=== PATIENT | female | born 1960 | race American Indian/Alaskan Native ===

== ENCOUNTER 2017-08-06 10:59 | Emergency (ER) | payer BC, OTHER ==
[2017-08-06 11:25] VITALS: BP 158/85
[2017-08-06] MEDS ORDERED: Sodium Chloride 0.9% 10 ML Syringe FLUSH PRN ×2 (11:28→12:54)
[2017-08-06] MEDS ORDERED: HYDROmorphone 0.5 MG/0.5 ML Syringe IVPUSH ONE (11:31)
--- NOTE | 2017-08-06 11:43 | EDM.PDOC ---
ED HPI GENERAL MEDICAL PROBLEM - General Chief Complaint: Cardiovascular Problem Stated Complaint: HIGH BP/NUMBNESS IN R ARM Time Seen by Provider: 08/06/17 11:08 Source of Information: Reports: Patient, Family History Limitations: Reports: No Limitations - History of Present Illness INITIAL COMMENTS - FREE TEXT/NARRATIVE: The patient presents with right arm tingling, right arm and leg weakness, right jaw pain, headache, chest pain, shortness of breath, nausea, and diarrhea. She has had some of these problems for a few days such as the nausea and diarrhea. She also had some generalized abdominal pain with it. She went to bed around 11pm and she had no weakness or numbness. So the last time known well was 11pm last night 08/05/2017. She woke up at 2am with a headache, right jaw and neck pain, chest pain, right arm and leg weakness and numbness. She needed help getting out of the couch and she had trouble walking and getting into the truck. She was also diaphoretic when she woke up at 2am. She took her blood pressure and it was elevated at 205/112. She took her medication that includes aspirin and she went back to bed. This morning she still had the symptoms and came in from [facility] to be evaluated. She has no cough. She has no dysuria. She said she had similar episode before and she was flown to [place] where they said she had a complex migraine and another doctor said an ischemic event. She has had 2 MIs with CABG and stents. Onset: Gradual Duration: Day(s): (Yesterday. Last time known well was 11pm 08/06/2017) Location: Reports: Head, Neck, Chest Quality: Reports: Sharp Severity: Moderate Improves with: Reports: None Worsens with: Reports: None Associated Symptoms: Reports: Chest Pain, Fever/Chills, Headaches, Nausea/ Vomiting, Shortness of Breath. 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, Nitroglycerin, Other Medication(s) Headache Pain Score (Numeric/FACES): 8 - Related Data Allergies Allergy/AdvReac Type Severity Reaction Status Date / Time No Known Allergies Allergy Verified 08/06/17 11:25 Home Meds: Home Meds Aspirin 81 mg PO DAILY 03/11/15 [History] Furosemide 20 mg PO DAILY PRN 03/11/15 [History] Gabapentin [Neurontin] 600 mg PO QID 03/11/15 [History] Insulin Aspart [NovoLOG] 0 unit SUBCUT TID 03/11/15 [History] Insulin Detemir [Levemir] 30 units SUBCUT BID 03/11/15 [History] Metoprolol Tartrate 50 mg PO BID 03/11/15 [History] Loperamide [Imodium] 2 mg PO DAILY 08/06/17 [History] Nitroglycerin 0.4 mg PO Q5M PRN 08/06/17 [History] Ondansetron [Zofran ODT] 4 mg PO DAILY 08/06/17 [History] Rosuvastatin [Crestor] 10 mg PO DAILY 08/06/17 [History] amLODIPine [Norvasc] 1 mg PO DAILY 08/06/17 [History] Social & Family History - Tobacco Use Smoking Status *Q: Current Every Day Smoker Years of Tobacco use: 25 - Recreational Drug Use Recreational Drug Use: No ED ROS GENERAL - Review of Systems Review Of Systems: See Below Constitutional: Reports: Chills, Malaise, Weakness, Fatigue. Denies: Fever HEENT: Reports: No Symptoms Respiratory: Reports: Shortness of Breath. Denies: Cough Cardiovascular: Reports: Chest Pain Endocrine: Reports: Fatigue GI/Abdominal: Reports: Abdominal Pain, Diarrhea, Nausea. Denies: Vomiting : Reports: No Symptoms Musculoskeletal: Reports: Neck Pain Skin: Reports: No Symptoms Neurological: Reports: Headache ED EXAM, GENERAL - Physical Exam Exam: See Below Exam Limited By: No Limitations General Appearance: Alert, No Apparent Distress Ears: Normal External Exam Nose: Normal Inspection Head: Atraumatic, Normocephalic Neck: Normal Inspection Respiratory/Chest: No Respiratory Distress, Lungs Clear, Normal Breath Sounds Cardiovascular: Regular Rate, Rhythm, No Edema, No Murmur GI/Abdominal: Soft, Non-Tender, No Organomegaly, No Mass Extremities: Normal Inspection Neurological: Alert, Oriented, Other (Gross numbness to the right arm. Mild to moderate weakness to the right arm and right leg) Skin Exam: Warm, Dry Course - Vital Signs Last Recorded V/S: Last Vital Signs Temp 97.4 F 08/06/17 11:19 Pulse 78 08/06/17 11:19 Resp 18 08/06/17 11:19 BP 158/85 H 08/06/17 11:19 Pulse Ox 98 08/06/17 11:19 - Orders/Labs/Meds Orders: Active Orders 24 hr Category Date Time Status Cardiac Monitoring [RC] . DIRECTED Care 08/06/17 11:28 Active EKG Documentation Completion [RC] STAT Care 08/06/17 11:30 Active Oxygen Therapy [RC] PRN Care 08/06/17 11:28 Active Peripheral IV Care [RC] . DIRECTED Care 08/06/17 11:30 Active Sodium Chloride 0.9% [Normal Saline] 100 ml Med 08/06/17 13:00 Active IV ASDIRECTED Sodium Chloride 0.9% [Saline Flush] Med 08/06/17 11:28 Active 10 ml FLUSH ASDIRECTED PRN Sodium Chloride 0.9% [Saline Flush] Med 08/06/17 12:54 Active 10 ml FLUSH ONETIME PRN Peripheral IV Insertion Adult [OM.PC] Stat Oth 08/06/17 11:28 Ordered Medication Orders Sodium Chloride (Normal Saline) 100 mls @ 65 mls/hr IV ASDIRECTED ESTEBAN Last Admin: 08/06/17 13:06 Dose: 65 mls/hr Sodium Chloride (Saline Flush) 10 ml FLUSH ASDIRECTED PRN PRN Reason: Keep Vein Open Last Admin: 08/06/17 12:06 Dose: 10 ml Sodium Chloride (Saline Flush) 10 ml FLUSH ONETIME PRN PRN Reason: IV FLUSH Last Admin: 08/06/17 13:06 Dose: 10 ml Labs: Laboratory Tests 08/06/17 08/06/17 08/06/17 Range/Units 11:45 11:45 11:45 WBC 8.23 (3.98-10.04) K/mm3 RBC 4.56 (3.98-5.22) M/mm3 Hgb 13.0 (11.2-15.7) gm/L Hct 38.4 (34.1-44.9) % MCV 84.2 (79.4-94.8) fl MCH 28.5 (25.6-32.2) pg MCHC 33.9 (32.2-35.5) g/dl RDW Std Deviation 40.2 (36.4-46.3) fL Plt Count 223 (182-369) K/mm3 MPV 10.0 (9.4-12.3) fl Neut % (Auto) 66.0 (34.0-71.1) % Lymph % (Auto) 26.1 (19.3-51.7) % [place] % (Auto) 6.0 (4.7-12.5) % Eos % (Auto) 1.3 (0.7-5.8) Baso % (Auto) 0.4 (0.1-1.2) % Neut # (Auto) 5.43 (1.56-6.13) K/mm3 Lymph # (Auto) 2.15 (1.18-3.74) K/mm3 [place] # (Auto) 0.49 H (0.24-0.36) K/mm3 Eos # (Auto) 0.11 (0.04-0.36) K/mm3 Baso # (Auto) 0.03 (0.01-0.08) K/mm3 PT 10.4 (8.0-13.0) SECONDS INR 0.96 APTT 28 (22-36) SECONDS Sodium 141 (136-145) mEq/L Potassium 4.1 (3.5-5.1) mEq/L Chloride 107 (98-107) mEq/L Carbon Dioxide 25 (21-32) mEq/L Anion Gap 13.1 (5-15) BUN 31 H (7-18) mg/dL Creatinine 1.2 H (0.55-1.02) mg/dL Est Cr Clr Drug Dosing TNP Estimated GFR (MDRD) 46 (>60) mL/min BUN/Creatinine Ratio 25.8 H (14-18) Glucose 141 H (74-106) mg/dL Calcium 9.4 (8.5-10.1) mg/dL Total Bilirubin 0.3 (0.2-1.0) mg/dL AST 17 (15-37) U/L ALT 21 (14-59) U/L Alkaline Phosphatase 99 (46-116) U/L Troponin I < 0.017 (0.00-0.056) ng/mL Total Protein 7.8 (6.4-8.2) g/dl Albumin 3.2 L (3.4-5.0) g/dl Globulin 4.6 gm/dL Albumin/Globulin Ratio 0.7 L (1-2) Meds: Medications Generic Name Dose Route Start Last Admin Trade Name Freq PRN Reason Stop Dose Admin Sodium Chloride 100 mls @ 65 mls/hr 08/06/17 13:00 08/06/17 13:06 Normal Saline IV 65 mls/hr ASDIRECTED ESTEBAN Administration Sodium Chloride 10 ml 08/06/17 11:28 08/06/17 12:06 Saline Flush FLUSH 10 ml ASDIRECTED PRN Administration Keep Vein Open Sodium Chloride 10 ml 08/06/17 12:54 08/06/17 13:06 Saline Flush FLUSH 10 ml ONETIME PRN Administration IV FLUSH Discontinued Medications Generic Name Dose Route Start Last Admin Trade Name Freq PRN Reason Stop Dose Admin Hydromorphone HCl 0.5 mg 08/06/17 11:31 08/06/17 12:04 Dilaudid IVPUSH 08/06/17 11:32 0.5 mg ONETIME ONE Administration Iopamidol 100 ml 08/06/17 12:54 08/06/17 13:06 Isovue-370 (76%) IVPUSH 08/06/17 12:55 100 ml ONETIME ONE Administration - Re-Assessments/Exams Free Text/Narrative Re-Assessment/Exam: 08/06/17 11:45 A stoke alert was called. The patient was last known well at 11pm on 2016. I ordered an IV saline lock, EKG, labs, CT of her head, and some dilaudid for pain. 08/06/17 12:[address] shows atherosclertoic change within the vertebral vessels and carotid siphon. No acute intracranial abnormality is appreciated. If patient's symptoms warrant further evaluation, MRI could then be considered. Her CBC looks good. Her PT, INR and PTT are negative. Her creatinine was slightly elevated at 1.2. Her glucose was elevated at 141. Her troponin was negative. She still has weakness on the right side. I feel she had a CVA. I called [facility] in [place] and talked with the neurologist field professional and he wanted a CTA of her brain and neck. 08/06/17 14:10 The CTA of the brain shows stenosis within the left carotid siphon of around 80- 90%. Minimal narrowing of the basilar artery which is felt to be of no clinical significance. CT angiogram of the brain is otherwise unremarkable. The CTA of the neck shows significant stenosis within the left carotid siphon due to calcified plaque. Lesser stenosis within the right carotid bulb and proximal right interna carotid artery. The blockage on the left carotid siphon would go along with her right sided weakness. I called the neurologist back at [place] and he will accept and I talked with the hospitalis Dr [facility] and he accepted the patient. 08/06/17 14:19 Departure - Departure Time of Disposition: 14:20 Disposition: Home, Self-Care 01 Condition: Serious Clinical Impression: CVA (cerebral vascular accident) Qualifiers: CVA mechanism: unspecified Qualified Code(s): I63.9 - Cerebral infarction, unspecified Chest pain Qualifiers: Chest pain type: unspecified Qualified Code(s): R07.9 - Chest pain, unspecified Referrals: PCP,None [Primary Care Provider] - Forms: ED Department Discharge - My Orders Last 24 Hours: My Active Orders 08/06/17 11:28 Cardiac Monitoring [RC] . DIRECTED Oxygen Therapy [RC] PRN Sodium Chloride 0.9% [Saline Flush] 10 ml FLUSH ASDIRECTED PRN Peripheral IV Insertion Adult [OM.PC] Stat 08/06/17 11:30 EKG Documentation Completion [RC] STAT Peripheral IV Care [RC] . DIRECTED 08/06/17 12:54 Sodium Chloride 0.9% [Saline Flush] 10 ml FLUSH ONETIME PRN 08/06/17 13:00 Sodium Chloride 0.9% [Normal Saline] 100 ml IV ASDIRECTED - Assessment/Plan Last 24 Hours: My Active Orders 08/06/17 11:28 Cardiac Monitoring [RC] . DIRECTED Oxygen Therapy [RC] PRN Sodium Chloride 0.9% [Saline Flush] 10 ml FLUSH ASDIRECTED PRN Peripheral IV Insertion Adult [OM.PC] Stat 08/06/17 11:30 EKG Documentation Completion [RC] STAT Peripheral IV Care [RC] . DIRECTED 08/06/17 12:54 Sodium Chloride 0.9% [Saline Flush] 10 ml FLUSH ONETIME PRN 08/06/17 13:00 Sodium Chloride 0.9% [Normal Saline] 100 ml IV ASDIRECTED
--- NOTE | 2017-08-06 11:55 | CT ---
Head CT Technique: Multiple axial sections through the brain were obtained. Intravenous contrast was not utilized. Comparison: No previous intracranial imaging. Findings: Ventricles along with basal cisterns and sulci over convexities are within normal limits for the patient's age. No abnormal parenchymal densities are seen. No evidence of intracranial hemorrhage. No midline shift or mass effect is appreciated. Mild atherosclerotic calcification is seen within the vertebral vessels and within the carotid siphon. Bone window settings were reviewed which shows the visualized sinuses to appear clear. No acute calvarial abnormality is seen. Impression: 1. Atherosclerotic change within the vertebral vessels and carotid siphon. 2. No acute intracranial abnormality is appreciated. If patient's symptoms warrant further evaluation, MRI could then be considered. Diagnostic code #2
[2017-08-06] MEDS ORDERED: Iopamidol 755 Mg/ML 100 ML Bottle IVPUSH ONE (12:54)
[2017-08-06] MEDS ORDERED: Sodium Chloride 0.9% 100 ML IV SCH (13:00)
--- NOTE | 2017-08-06 13:29 | CR ---
Chest: Portable view of the chest was obtained. Comparison: No previous study. Heart size is normal. Mild tortuosity of the thoracic aorta is seen. Previous sternotomy is noted. Lungs are clear. Impression: 1. Nothing acute is appreciated. Diagnostic code #2
--- NOTE | 2017-08-06 14:03 | CT ---
CT angiogram of brain Technique: Multiple axial sections were obtained centered to the [place]. Intravenous contrast was utilized. Study obtained during the arterial phase. Findings: Both anterior cerebral arteries are patent. Both middle cerebral arteries appear to be patent without definite stenosis. Posterior cerebral arteries are also patent. Major flow into the right posterior cerebral artery is from the anterior circulation. Left posterior cerebral artery supplied mostly by the basilar artery. Basilar artery shows minimal stenosis which is felt to be of no clinical significance. Stenosis is again seen within the left carotid siphon of 80-90% caused by a calcified plaque. Impression: 1. Stenosis within the left carotid siphon of around 80-90%. 2. Minimal narrowing of the basilar artery which is felt to be of no clinical significance. 3. CT angiogram of the brain is otherwise unremarkable. Diagnostic code #3
--- NOTE | 2017-08-06 14:06 | CT ---
CT angiogram of neck Technique: Multiple axial sections were obtained from the aortic arch superiorly through the carotid siphon. Intravenous contrast was given during the arterial phase. Reconstructed MIP images were obtained. Findings: Right side: There is approximately 50% stenosis within the right carotid bulb. Right common carotid artery is otherwise patent. Calcified and soft plaque is noted within the right carotid bulb and proximal right internal carotid artery. There is approximately 20-30% stenosis within the proximal right internal carotid artery. Internal carotid artery is otherwise patent. Left side: Left common carotid artery is patent. Mild calcified plaque is noted within the carotid bulb and origin of the internal carotid artery causing no significant stenosis. There is calcified plaque being seen within the left carotid siphon causing around 80-90% stenosis. Both vertebral arteries are patent into the basilar artery. Impression: 1. Significant stenosis within the left carotid siphon due to calcified plaque. Lesser stenosis within the right carotid bulb and proximal right internal carotid artery. Diagnostic code #5
== END 2017-08-06 15:12 | disposition home or self-care (01) ==
LOC: JD.ED 10:59
DX: I63.9 Cerebral infarction, unspecified (principal); R07.9 Chest pain, unspecified; F17.210 Nicotine dependence, cigarettes, uncomplicated; Z79.82 Long term (current) use of aspirin; Z79.899 Other long term (current) drug therapy
CPT/HCPCS: 36415; 70450; 70496; 70498; 71010; 80053; 84484; 85025; 85610; 85730; 93005; 96374; 99285; J1170; J7030; J7050; Q9967; 93010; 99284-25